=== PATIENT | male | born 1985 | race Caucasian/White ===

== ENCOUNTER 2018-05-29 20:32 | Emergency (ER) | payer SELFPAY ==
[~2018-05-29] VITALS: Ht 182.9 cm; Wt 93.0 kg
--- OUTSIDE RECORDS SUMMARY | 2018-05-29 20:37 | XMS REPORT ---
Author Author JUAN GASTELUM [facility] Address [address] [place] [address] Care Team Providers Care Fish And Wildlife Warden Name Role Phone JUAN GASTELUM Unavailable PROBLEMS Type Condition ICD9-CM Code RUY01-MC Code Onset Dates Condition Status SNOMED Code Problem Reflux gastritis K29.60 Active [id number] ALLERGIES Substance Reaction Event Type Date Status sulfa drugs Unknown Drug Allergy October, Active Penicillamine Unknown Drug Allergy October, Active ENCOUNTERS Encounter Location Date Diagnosis [facility] [address] [phone] October, Reflux gastritis K29.60 [facility] [id number] [place] [phone] Jun, [facility] [id number] [place] [phone] Jun, [facility] [address] [phone] May, Depression, major, recurrent, mild F33.0 ; Anxiety F41.9 and Substance addiction F19.20 [facility] [phone] [place] [phone] May, Substance addiction F19.20 ; Substance abuse F19.10 and Anxiety F41.9 [facility] [id number] [place] [phone] May, Encounter for dental examination Z01.20 [facility] [id number] [place] [phone] May, 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 and Depression, major, recurrent, mild F33.0 IMMUNIZATIONS No Known Immunizations SOCIAL HISTORY Never Assessed REASON FOR VISIT mid epigastric pain since yesterday, some pain with palpation, cough (dry), raspy throat, wakes up with thick mucousy film in throat---LUCAS frederick PLAN OF CARE Activity Details Follow Up prn Reason: VITAL SIGNS Height 68.0 in 2017-11-02 Weight 201 lbs 2017-11-02 Temperature 98.0 degrees Fahrenheit 2017-11-02 Heart Rate 73 bpm 2017-11-02 Respiratory Rate 16 2017-11-02 BMI 30.56 kg/m2 2017-11-02 Blood pressure systolic 122 mmHg 2017-11-02 Blood pressure diastolic 78 mmHg 2017-11-02 MEDICATIONS Medication Instructions Dosage Frequency Start Date End Date Duration Status Ranitidine HCl 150 MG Orally Twice a day 1 tablet 12h October, 30 day(s) Active RESULTS No Results PROCEDURES No Known procedures INSTRUCTIONS MEDICATIONS ADMINISTERED No Known Medications MEDICAL (GENERAL) HISTORY Type Description Date Medical History Asthma as a child Hospitalization History Pneumonia 2004
--- OUTSIDE RECORDS SUMMARY | 2018-05-29 20:38 | XMS REPORT ---
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
--- OUTSIDE RECORDS SUMMARY | 2018-05-29 20:38 | XMS REPORT ---
Author Author GEORGE MADDEN [facility] eClinicalWorks Address Unknown Phone Unavailable Care Team Providers Care Senior Sql Server Developer Name Role Phone GEORGE MADDEN Unavailable Allergies No Known Allergies Problems Problem Type Condition Code Onset Dates Condition Status Problem Encounter for dental examination Z01.20 Active Medications Medication Code System Code Instructions Start Date End Date Status Dosage Cymbalta [facility] [address]-22 20 MG Orally Once a day Jun 16, 2015 1 capsule Results No Known Results Summary Purpose eClinicalWorks Submission
--- OUTSIDE RECORDS SUMMARY | 2018-05-29 20:38 | XMS REPORT ---
Author Author GOERGE MADDEN Organization eClinicalWorks Address Unknown Phone Unavailable Care Team Providers Care Block Engraver Name Role Phone GEORGE MADDEN CP Unavailable Allergies, Adverse Reactions, Alerts Substance Reaction Event Type sulfa drugs Info Not Available Drug Allergy Penicillamine Info Not Available Drug Allergy Problems Problem Type Condition Code Onset Dates Condition Status Assessment Depression, major, recurrent, mild F33.0 Active Assessment Anxiety F41.9 Active Problem Encounter for dental examination Z01.20 Active Assessment Substance addiction F19.20 Active Medications Medication Code System Code Instructions Start Date End Date Status Dosage Cymbalta [facility] [address]-74 20 MG Orally Once a day Jun 16, 2015 1 capsule Multi Vitamin Daily [facility] [address] Orally Once a day 1 tablet Procedures Procedure Coding System Code Date Psych diagnostic evaluation w/medical services, established patient CPT-4 79616 Jun 16, 2015 Vital Signs Date/Time: Jun 16, 2015 Cardiac Monitoring Heart Rate 108 bpm Weight 203.0 lbs Height 68.0 in BMI 30.86 Index Blood Pressure Diastolic 86 mmHg Blood Pressure Systolic 130 mmHg Results No Known Results Summary Purpose eClinicalWorks Submission
--- OUTSIDE RECORDS SUMMARY | 2018-05-29 20:38 | XMS REPORT ---
Author Author GEORGE MADDEN [facility] eClinicalWorks Address Unknown Phone Unavailable Care Team Providers Care Manager Radio Name Role Phone GEORGE MADDEN Unavailable Allergies No Known Allergies Problems Problem Type Condition Code Onset Dates Condition Status Problem Encounter for dental examination Z01.20 Active Medications Medication Code System Code Instructions Start Date End Date Status Dosage Cymbalta [facility] [address]-68 20 MG Orally Once a day Jun 16, 2015 1 capsule Results No Known Results Summary Purpose eClinicalWorks Submission
--- OUTSIDE RECORDS SUMMARY | 2018-05-29 20:38 | XMS REPORT ---
Author Author SONJA CLEMENTE [facility] eClinicalWorks Address Unknown Phone Unavailable Care Team Providers Care Centura Technical Lead Senior Developer Name Role Phone SONJA CLEMENTE CP Unavailable Allergies No Known Allergies Problems Problem Type Condition Code Onset Dates Condition Status Assessment Substance addiction F19.20 Active Assessment Substance abuse F19.10 Active Problem Encounter for dental examination Z01.20 Active Assessment Anxiety F41.9 Active Medications No Known Medications Procedures Procedure Coding System Code Date Psychotherapy, patient &/family, 45 minutes, established patient CPT-4 15663 Jun 09, 2015 Results No Known Results Summary Purpose eClinicalWorks Submission
--- OUTSIDE RECORDS SUMMARY | 2018-05-29 20:38 | XMS REPORT ---
Author Author KIRA PASTOR [facility] eClinicalWorks Address Unknown Phone Unavailable Care Team Providers Care Deicer Inspector Pneumatic Name Role Phone KIRA PASTOR CP Unavailable Allergies, Adverse Reactions, Alerts Substance Reaction Event Type sulfa drugs Info Not Available Drug Allergy Amoxicillin Info Not Available Drug Allergy Problems Problem Type Condition Code Onset Dates Condition Status Assessment Encounter for dental examination Z01.20 Active Problem Encounter for dental examination Z01.20 Active Medications Medication Code System Code Instructions Start Date End Date Status Dosage Multi Vitamin Daily [facility] [address] Orally Once a day 1 tablet Procedures Procedure Coding System Code Date INTRAORL-PERIAPICAL 1 FILM 91781 CPT-4 D0220 Jun 03, 2015 INTRAORL-PERIAPICAL EA ADD FILM CPT-4 D0230 Jun 03, 2015 COMP ORAL EVALUATION - NEW/EST PT CPT-4 D0150 Jun 03, 2015 PRDONTAL SCAL and ROOT PLAN 1-3 TEETH CPT-4 D4342 Jun 03, 2015 INTRAORL-PERIAPICAL EA ADD FILM CPT-4 D0230 Jun 03, 2015 INTRAORL-PERIAPICAL EA ADD FILM CPT-4 D0230 Jun 03, 2015 PRDONTAL SCAL and ROOT PLAN 1-3 TEETH CPT-4 D4342 Jun 03, 2015 BITEWINGS - FOUR FILMS CPT-4 D0274 Jun 03, 2015 Vital Signs Date/Time: Jun 03, 2015 Blood Pressure Diastolic 81 mmHg Blood Pressure Systolic 116 mmHg Cardiac Monitoring Heart Rate 87 bpm Results No Known Results Summary Purpose eClinicalWorks Submission
[2018-05-29] MEDS ORDERED: RX-CLINDAMYCIN 150 MG (CLEOCIN) CAP PPK#4 PO STA (21:19)
[2018-05-29 21:24] VITALS: BP 135/88
[2018-05-29] MEDS ORDERED: DOXY100C42 PO (21:25)
--- NOTE | 2018-05-29 21:25 | ED Integumentary General ---
General Chief Complaint: Skin/Wound Problems Stated Complaint: CYST IN GROIN AREA Nursing Triage Note: PATIENT HERE FOR CONCERNS ABOUT A CYTIC AREA IN HIS GROIN. HE STATES IT IS PAINFUL AND RED. HE IS CONCERNED ABOUT INFECTION. Source: patient Exam Limitations: no limitations History of Present Illness Date Seen by Provider: May 29, 2018 Time Seen by Provider: 21:20 Initial Comments To ER with concerns of an abscess to the groin. Been there for about a week. He believes this started as an ingrown hair. No fevers but he has had chills. He has tried to squeeze this at home without any drainage or discharge. Timing/Duration: week, getting worse Severity: moderate Location: genitalia Possible Cause: no cause identified Allergies and Home Medications Allergies Coded Allergies: Amoxicillin (Unverified Allergy, Severe, PT STATES IT WOULD "KILL HIM", 04/05) Sulfa (Sulfonamide Antibiotics) (Unverified Allergy, Mild, HIVES, 10/02/10) Home Medications Doxycycline Monohydrate 100 Mg Capsule, 100 MG PO BID Prescribed by: LIAN SHELTON on 05/29/182124 Patient Home Medication List Home Medication List Reviewed: Yes Review of Systems Review of Systems Constitutional: see HPI, chills EENTM: see HPI Respiratory: no symptoms reported Cardiovascular: no symptoms reported Genitourinary: see HPI Musculoskeletal: no symptoms reported Skin: no symptoms reported Psychiatric/Neurological: No Symptoms Reported Endocrine: No Symptoms Reported Past Axucvvo-Snobba-Pqmgzl Hx Patient Social History Alcohol Use: Denies Use Recreational Drug Use: No Smoking Status: Current Everyday Smoker Type Used: Cigarettes 2nd Hand Smoke Exposure: Yes Recent Foreign Travel: No Contact w/Someone Who Travel: No Recent Infectious Disease Expo: No Recent Hopitalizations: No Seasonal Allergies Seasonal Allergies: No Past Medical History Surgeries: No Respiratory: No Cardiac: No Neurological: No Genitourinary: No Gastrointestinal: No Musculoskeletal: No Endocrine: No HEENT: No Cancer: No Psychosocial: No Integumentary: No Physical Exam Vital Signs Vital Signs - First Documented 05/29/18 05/29/18 20:43 21:24 Temp 98.0 Pulse 99 Resp 20 B/P (MAP) 135/88 (104) Pulse Ox 96 O2 Delivery Room Air Capillary Refill : Less Than 3 Seconds General Appearance: WD/WN, no apparent distress HEENT: PERRL/EOMI, normal ENT inspection Respiratory: no respiratory distress, no accessory muscle use Neurologic/Psychiatric: alert, normal mood/affect Skin: normal color, warm/dry Skin Problem Location: other (genital exam done with Raven ZAVALA at the bedside. There is a 1.5 cm very fluctuant abscess at the base of the penis inferiorly and on the right side. There is no erythema or induration of the scrotum. There is about 3 cm of surrounding erythema without induration on the penile shaft. This is not circumferential. This erythema does not extend distally down the shaft of the penis or proximally onto the mons pubis.) Skin Problem Character: abscess Procedures/Interventions I&D : Blade Size: 11 Progress Cleaned with alcohol swab, anesthetized with 1 mL of 1% lidocaine without epinephrine. Wound then opened with a small 0.5 cm superficial incision over the most fluctuant portion of this abscess. Rather large amount of purulent material was expressed. Culture collected and sent to lab. Progress/Results/Core Measures Results/Orders My Orders Orders - LIAN SHELTON APRN Rx-Clindamycin Capsule (Rx-Cleocin Capsu (05/29/18 21:19) Clindamycin Injection (Cleocin Injection (05/29/18 21:30) Clindamycin Injection (Cleocin Injection (05/29/18 21:45) Vital Signs/I&O 05/29/18 05/29/18 20:43 21:24 Temp 98.0 Pulse 99 97 Resp 20 14 B/P (MAP) 135/88 (104) 135/88 (104) Pulse Ox 96 97 O2 Delivery Room Air Blood Pressure Mean: 104 Departure Communication (Admissions) Patient is not diabetic. Denies any fevers. He is not tachycardic. Impression Primary Impression: Abscess Disposition: HOME, SELF-CARE Condition: Stable Departure-Patient Inst. Decision time for Depature: 21:23 Referrals: NO,LOCAL PHYSICIAN (PCP/Family) Primary Care Physician Patient Instructions: Abscess Incision and Drainage (DC) Add. Discharge Instructions: 1. Warm compresses to this area or soak in warm bathtub. You may shower and let water run over this. It is important to keep a close eye on this for any worsening such as increasing redness, swelling, development of any fevers or chills. Return to the emergency room if you develop any of these. Follow-up with your primary care provider next week. Take antibiotics as directed. All discharge instructions reviewed with patient and/or family. Voiced understanding. Scripts Doxycycline Monohydrate (Doxycycline Monohydrate) 100 Mg Capsule 100 MG PO BID, #14 CAP Prov: LIAN SHELTON APRN 05/29/18 Images Female/Male 1 - Swelling, Tenderness LIAN SHELTON APRN May 29, 2018 21:25
[2018-05-29] MEDS ORDERED: CLINDAMYCIN 600 MG/4ML (CLEOCIN) VIAL IM ONE (21:30)
[2018-05-29] MEDS ORDERED: CLINDAMYCIN 300 MG/2ML (CLEOCIN) VIAL IM SCH (21:45)
== END 2018-05-29 22:05 | disposition home or self-care (01) ==
LOC: EDUNIT# 20:32 → ER 20:33
DX: L02.214 Cutaneous abscess of groin (principal); F17.210 Nicotine dependence, cigarettes, uncomplicated; Z88.0 Allergy status to penicillin; Z88.2 Allergy status to sulfonamides
CPT/HCPCS: 87070; 87205; 96372; 99284